=== PATIENT | female | born 1975 | race Caucasian/White ===

== ENCOUNTER → 2020-05-07 16:24 | Outpatient (CLI) | payer MEDICAID, SELFPAY ==
[2020-05-14 03:06] LABS: Age Gdln ACOG Testing 30-65 (.); HPV Genotype 16, Aptima Negative (Negative)
[2020-05-14 12:27] LABS: HPV APTIMA, High Risk Positive (Negative); HPV Genotype 18,45 Aptima Positive (Negative)
[2020-05-14 12:29] LABS: HPV Reflexed? YES, CHARGE PATIENT
== END ==
PROVIDERS: PCP Family Medicine; Visit Provider Family Medicine
DX: Z01.419 Encounter for gynecological examination (general) (routine) without abnormal findings (principal); Z12.4 Encounter for screening for malignant neoplasm of cervix
CPT/HCPCS: 87624; 88175; G0145

== ENCOUNTER → 2020-06-14 22:03 | Outpatient (CLI) | payer MEDICAID, SELFPAY | PROVIDERS: PCP Family Medicine; Referring Provider Family Medicine; Visit Provider Family Medicine | DX: G47.10 Hypersomnia, unspecified (principal); I10 Essential (primary) hypertension | CPT/HCPCS: 95810 ==

== ENCOUNTER → 2020-06-25 20:00 | Outpatient (CLI) | payer MEDICAID, SELFPAY | PROVIDERS: PCP Family Medicine; Visit Provider Family Medicine | DX: G47.33 Obstructive sleep apnea (adult) (pediatric) (principal) | CPT/HCPCS: 95811 ==

== ENCOUNTER → 2022-01-30 | Outpatient (CLI) | payer MEDICAID, SELFPAY ==
[2022-01-30 12:51] LABS: Vitamin B12 1191 pg/mL (211-911)
[2022-01-30 12:53] LABS: Anion Gap 7 (5-15); BUN 13 mg/dL (7-18); BUN/Creat Ratio 21.3 RATIO (10-20); Calcium,Total 9.7 mg/dL (8.5-10.1); Chloride 102 mmol/L (98-107); Creatinine, Serum 0.61 mg/dL (0.55-1.02); EST Glomerular Filtration Rate 112 mL/min (>60); Est Glom Filt Rate - Afr Amer 135 mL/min (>60); Glucose 88 mg/dL (74-106); Potassium 3.6 mmol/L (3.5-5.1); Sodium Level 139 mmol/L (136-145); Thyroid Stim Hormone (TSH) 2.14 uIU/mL (0.358-3.74)
== END | disposition home or self-care (01) ==
LOC: BFHLAB 10:10
PROVIDERS: PCP Family Medicine; Visit Provider Family Medicine
DX: I10 Essential (primary) hypertension (principal); E28.2 Polycystic ovarian syndrome; K21.9 Gastro-esophageal reflux disease without esophagitis; R73.01 Impaired fasting glucose; E53.8 Deficiency of other specified B group vitamins
CPT/HCPCS: 36415; 80048; 82607; 84443

== ENCOUNTER → 2022-12-15 | Outpatient (CLI) | payer MEDICAID, SELFPAY | END | disposition home or self-care (01) | LOC: SL 20:45 | PROVIDERS: PCP Family Medicine; Referring Provider Family Medicine; Visit Provider Family Medicine | DX: G47.33 Obstructive sleep apnea (adult) (pediatric) (principal) | CPT/HCPCS: 95811 ==

== ENCOUNTER 2023-06-14 02:38 | Observation (INO) | payer MEDICAID, SELFPAY ==
[2023-06-14] VITALS (12 sets, daily range): BP systolic 119–177; BP diastolic 64–96; PULSE 68–106; RESP 16–18; TEMP 36.2–39.3; O2SAT 92–100; BMI 59.3
--- OUTSIDE RECORDS SUMMARY | 2023-06-14 02:32 | XMS RPT_ITS | CCD ---
Author Name Unknown Address [address] [place] [address] Organization [facility] Care Team Providers Care Clinical Recruiter Name Role Phone NANI COON Admitting Unavailable COON, NANI Primary Care Unavailable COONNANI Attending Unavailable MIEDEL, BEVERLY Consulting Unavailable PROVIDER, UNKNOWN Consulting Unavailable PROVIDER, UNKNOWN Consulting Unavailable MIEDEL, BEVERLY Consulting Unavailable MIEDEL, BEVERLY Attending Unavailable MIEDEL, BEVERLY Admitting Unavailable MIEDEL, BEVERLY Primary Care Unavailable PROVIDER, UNKNOWN Consulting Unavailable PROVIDER, UNKNOWN Consulting Unavailable MIEDEL, BEVERLY Attending Unavailable MIEDEL, BEVERLY Admitting Unavailable MIEDEL, BEVERLY Primary Care Unavailable MIEDEL, BEVERLY Consulting Unavailable PROVIDER, UNKNOWN Consulting Unavailable PROVIDER, UNKNOWN Consulting Unavailable Results Test Name Value Interpretation Reference Range Facil ity Encounters Encounter Date Encounter Type Care Provider Facility Start: 05-26-2023 End: 05-26-2023 ambulatory BEVERLY Espinoza [facility] Start: 03-10-2023 End: 03-10-2023 ambulatory NANI COON [facility] Start: 12-09-2022 End: 12-09-2022 ambulatory BEVERLY YOUNGBLOOD [facility] Payers Date Payer Category Payer Unknown [id number] 1975 Unknown [id number] 1975 Unknown [id number] Unknown [id number] Summary Purpose Family History No Family History Records FoundNo Family History Records Found Advance Directives No Advanced Directives Records FoundNo Advanced Directives Records Found Additional Source Comments INFORMATION SOURCE (unrecogn ized section and content) DATE CREATED AUTHOR AUTHOR'S ANNEMARIE ATION 05/27/2023 [facility] FOR RECORDS PERTAINING TO PATIENTS WHO ARE OR HAVE BEEN ENROLLED IN A CHEMICAL DEPENDENCY/SUBSTANCEABUSE PROGRAM, SOME INFORMATION MAY BE OMITTED. This clinical summary was aggregated from multiple sources. Caution should be exercised in using it in the provision of clinical care. This summary normalizes information from multiple sources, and as a consequence, information in this document may materially change the coding, format and clinical context of patient data. In addition, data may be omitted in some cases. CLINICAL DECISIONS SHOULD BE BASED ON THE PRIMARY CLINICAL RECORDS. [employer] provides no warranty or guarantee of the accuracy or completeness of information in this document.
[2023-06-14] MEDS: 0.9% Saline Lock 10 ML Syringe IV (03:23)
[2023-06-14] MEDS: 0.9% Normal Saline (1000mL) 1,000 ML 75 ML IV ×2 (03:23→21:17)
--- NOTE | 2023-06-14 05:00 | EKG12_ITS ---
Test Reason : AM EKG Blood Pressure : / mmHG Vent. Rate : 097 BPM Atrial Rate : 097 BPM P-R Int : 152 ms QRS Dur : 098 ms QT Int : 362 ms P-R-T Axes : 017 062 038 degrees QTc Int : 459 ms Normal sinus rhythm Poor R wave progression Borderline No previous ECGs available Confirmed by James Ramirez ([id number]), newspaper or periodical editor ELIA MONTANA ([id number]) on 06/15/2023 9:49:20 AM Referred By: MYNOR Confirmed By:James Ramirez
[2023-06-14 06:25] LABS: Absolute Lymphocyte Count 0.85 X10^3/uL (0.83-4.51); Basophil# 0.05 X10^3/uL; Basophil% 0.3 % (0-1); Eosinophil# 0.03 X10^3/uL; Eosinophils% 0.2 % (0-5); Hematocrit 33.3 % (37-47); Hemoglobin 10.8 g/dL (12.0-15.0); Lymphocyte # 0.85 X10^3/ul (0.83-4.51); Lymphocyte % 5.7 % (19-41); Mean Corp Hgb Conc 32.4 g/dL (32-36); Mean Corpuscular Hgb 29.4 pg (27.0-32.0); Mean Corpuscular Volume 90.7 fL (81-99); Mean Platelet Vol. 9.7 fl (6.2-12.0); NRBC Flagged by Analyzer 0 % (0-5); Neutrophil # 12.95 X10^3/uL (2.7-7.7); Neutrophil % 86.9 % (47-70); Platelet Count 208 K/mm3 (150-450); RBC Distribution Width CV 13.5 % (11.6-14.6); RBC Distribution Width SD 45.3 fl (35.1-43.9); Red Blood Count 3.67 M/mm3 (4.2-5.4); White Blood Count 14.9 K/mm3 (4.4-11.0)
[2023-06-14 06:38] LABS: Anion Gap 6 (5-15); BUN 14 mg/dL (7-18); BUN/Creat Ratio 11.8 RATIO (10-20); Calcium,Total 8.5 mg/dL (8.5-10.1); Chloride 105 mmol/L (98-107); Creatinine, Serum 1.19 mg/dL (0.55-1.02); EST Glomerular Filtration Rate 52 mL/min (>60); Est Glom Filt Rate - Afr Amer 62 mL/min (>60); Estimated Creatinine Clearance 91.23 ml/min; Glucose 129 mg/dL (74-106); Potassium 2.9 mmol/L (3.5-5.1); Sodium Level 139 mmol/L (136-145)
--- NOTE | 2023-06-14 07:35 | RAD_ITS ---
HISTORY: kidney stone. TECHNIQUE: XR Abdomen 1 View. COMPARISON: CT 02/05/2013. FINDINGS: BOWEL GAS PATTERN: Mild gaseous distention of small bowel in the midabdomen. Scattered air and stool in nondilated colon. FREE AIR: Not assessed on supine view. CALCIFICATIONS: No abnormal calcifications observed. BONES: Mild degenerative change. RAD/Abdomen Single View IMPRESSION: Unremarkable examination. Electronically Signed: Elyse Cerna MD at 8:18 EST ,
--- NOTE | 2023-06-14 07:37 | HP.PCM_ITS ---
HPI - General General Date of Admission: 06/13/23 Date of Service: 06/13/23 Chief Complaint: Kidney stone with urinary tract infection HPI Narrative CÉSAR HENDERSON, is a 47 F who presents As a transfer from outside hospital she presented with a kidney stone and had an infection she is not septic no snow signs of septic shock but with the active infection outside hospital wanted to have her transferred to [facility] for urology care. She's accepted started on broad- spectrum antibiotics with Cipro plan the check a KUB today to see the location of the stone and will plan to take a surgery today for cystoscopy and stent placement. [facility] Medical History (Updated 06/14/23 @ 07:[address] Bryn Rasmussen MD) Asthma Back pain due to injury CPAP (continuous positive airway pressure) dependence Depression GERD (gastroesophageal reflux disease) H/O methicillin resistant Staphylococcus aureus infection HTN (hypertension) Kidney stones PCOS (polycystic ovarian syndrome) Restless legs Sleep apnea Home Medications vits,calcium no.78-iron fumarate-folic acid 29 mg-1 mg tablet 1 tablet PO DAILY 01/11/13 [History Last Taken 01/24/13 0800] fluoxetine 20 mg capsule 20 mg PO DAILY 07/24/20 [History Last Taken Unknown] glucosamine sulfate 500 mg tablet (Glucosamine) 500 mg PO DAILY 07/24/20 [History Last Taken Unknown] hydrochlorothiazide 25 mg tablet 25 mg PO DAILY 07/24/20 [History Last Taken Unknown] magnesium 250 mg tablet 250 mg PO DAILY 07/24/20 [History Last Taken Unknown] metformin 500 mg tablet,extended release 24 hr 500 mg PO DAILY PCOS 07/24/20 [History Last Taken Unknown] omega-3 fatty acids 1,000 mg capsule (Fish Oil Concentrate) 1,000 mg PO DAILY 07/24/20 [History Last Taken Unknown] omeprazole 20 mg capsule,delayed release 20 mg PO DAILY 07/24/20 [History Last Taken Unknown] cholecalciferol (vitamin D3) 125 mcg (5,000 unit) capsule (D3-5000) 250 mcg PO QHS 06/14/23 [History Last Taken Unknown] Allergy/AdvReac Type Severity Reaction Status Date / Time adhesive AdvReac Itching Verified 07/24/20 13:46 latex AdvReac Itching Verified 07/24/20 13:46 Family History Father Asthma CVA (cerebral vascular accident) Seizures Mother Hypertension Diabetes Asthma Skin cancer Surgical History H/O section History of cholecystectomy History of tonsillectomy Social History household members: children and other details: parents housing: house Smoking Status: Never smoker alcohol intake: never diet: other what type of physical activity do you participate in: walking do you feel safe at home: Yes Vital Signs Vital Signs Vital Signs: 06/14/23 03:39 Temperature 99.2 F H Temperature Source Oral Pulse Rate 68 Respiratory Rate 16 Blood Pressure 120/96 H Blood Pressure Mean 104 Blood Pressure Source Monitor Blood Pressure Position Semi-Fowlers Blood Pressure Location Left Forearm Pulse Ox 97 Oxygen Delivery Method Room Air Weight Weight: 161.706 kg Body Mass Index (BMI) 59.3 Physical Exam Const alert and oriented x3 General Appearance: cooperative HEENT normocephalic and head/scalp atraumatic Eyes PERRL and EOMs intact bilaterally Neck supple, no JVD and no carotid bruits Resp normal respiratory effort, normal air movement and clear to auscultation bila terally Cardio regular rate and no murmurs GI normal to inspection, nondistended, normoactive bowel sounds and soft to palpation Extremity normal capillary refill General Extremity: no tenderness to palpation of joints or extremities; Negative for edema Skin no rashes or lesions noted and no wounds General Skin Exam: no breakdown Neuro CN's II-XII intact bilaterally Psych affect normal Appearance: appropriate Results Lab / Micro Data 06/14/23 05:49 06/14/23 05:49 Labs: Laboratory Results - last 24 hr 06/14/23 05:49: WBC 14.9 H, RBC 3.67 L, Hgb 10.8 L, Hct 33.3 L, MCV 90.7, MCH 29.4, MCHC 32.4, RDW Std Deviation 45.3 H, RDW Coeff of Bran 13.5, Plt Count 208, MPV 9.7, Immature Gran % (Auto) 0.900, Neut % (Auto) 86.9 H, Lymph % (Auto) 5.7 L, Glynn % (Auto) 6.0, Eos % (Auto) 0.2, Baso % (Auto) 0.3, Absolute Neuts (auto) 13.0 H, Absolute Lymphs (auto) 0.85, Nucleated RBC % 0, Sodium 139, Potassium 2.9 L, Chloride 105, Carbon Dioxide 28.0, Anion Gap 6, BUN 14, Creatinine 1.19 H , Estim Creat Clear Calc 91.23, Est GFR (MDRD) Af Amer 62, Est GFR (MDRD) Non-Af 52 L, BUN/Creatinine Ratio 11.8, Glucose 129 H, Calcium 8.5 Assessment & Plan Assessment/Plan (1) UTI (urinary tract infection): PLAN: Continue with broad-spectrum antibiotics with Cipro (2) Kidney stones: PLAN: Plan to get a KUB today the check location the stone, and PO, plan for surgery later today for cystoscopy stent placement.
--- NOTE | 2023-06-14 07:42 | DCINST_ITS ---
Discharge Instructions Diet Discharge Diet: No restrictions Activity Discharge Activity: Return to Normal Activity and May Not Drive (while taking narcotic pain medications.) Dressing / Incision Call your doctor if you observe: Fever of 101 or Higher Follow Up Care Please Follow Up With: Bryn Rasmussen MD When: Call [phone] for an appointment Test Results: Test results from this visit will be discussed in further detail at your follow- up appointment, if applicable. Discharge Plan Admission Admit Date/Time: 06/14/23 02:38 Primary Reason for Your Visit: kidney stone Attending Provider: Bryn Rasmussen Primary Care Provider: Ruth Gipson Discharge Orders/Prescriptions Prescriptions: New ciprofloxacin HCl [Cipro] 500 mg tablet 500 mg PO BID Qty: 14 0RF ibuprofen 600 mg tablet 600 mg PO Q6H PRN (Reason: pain) Qty: 20 0RF tamsulosin [Flomax] 0.4 mg capsule 0.4 mg PO DAILY Qty: 14 0RF phenazopyridine [Pyridium] 100 mg tablet 100 mg PO TID Qty: 14 0RF Continued omeprazole 20 mg capsule,delayed release(DR/EC) 20 mg PO DAILY metformin 500 mg tablet extended release 24 hr 500 mg PO DAILY fluoxetine 20 mg capsule 20 mg PO DAILY Patient Comments: TAKE 1 CAPSULE BY MOUTH ONCE DAILY hydrochlorothiazide 25 mg tablet 25 mg PO DAILY magnesium 250 mg tablet 250 mg PO DAILY glucosamine sulfate [Glucosamine] 500 mg tablet 500 mg PO DAILY Rx Instructions: administer with a meal omega-3 fatty acids [Fish Oil Concentrate] 1,000 mg capsule 1,000 mg PO DAILY vit,[id number] 1 TABLET tablet 1 tablet PO DAILY cholecalciferol (vitamin D3) [D3-5000] 125 mcg (5,000 unit) capsule 250 mcg PO QHS Referrals / Follow Up: Ruth Gipson MD [Primary Care Provider] - Bryn Rasmussen MD [Med Staff - Active Staff] - Disposition Disposition (needs filled in before D/C Order can be placed): Home, Self Care
[2023-06-14] MEDS: 0.9% Normal Saline (1000mL) 1,000 ML 15 ML IV (08:31)
[2023-06-14] MEDS: Ciprofloxacin 400 MG/200 ML BAG 200 MG IV ×2 (08:31→21:16)
[2023-06-14] MEDS: Potassium Chloride 10mEq/100mL 10 MEQ/100 ML IV.SOLN. 100 MEQ IV BOLUS (08:32)
--- NOTE | 2023-06-14 09:22 | OP.PCM_ITS ---
Report of Operation Date of Procedure: 06/14/23 Pre-Operative Diagnosis: Infected right stone right UPJ Post-Operative Diagnosis: The same Surgery/Procedure Performed:: Cystoscopy right retrograde pyelogram and right stent placement Description of Surgical Findings:: Patient was taken back to the operating room after induction of general anesthesia, the patient was placed in dorsolithotomy position. The urethra and genitals were prepped and draped in usual sterile fashion. Using a 21 Malaysian rigid cystourethroscope the entire length of the urethra was normal then went into the bladder. Identified the trigone the left and right ureteral orifice. I then cannulated the right ureteral orifice and advanced a wire up into the kidney. I then backloaded a 5 Malaysian open ended catheter over the wire and injected contrast to delineate the anatomy. After the retrograde was performed I then used fluoroscopic images and guidance to advanced a wire up into the kidney and over the 0.038 glidewire I advanced a 6 Malaysian by 26 cm double p igtail stent. On retrograde he could see a radiolucent stone in the right UPJ, I then pulled the 0.038 Glidewire off and the stent coiled in the kidney bladder good position. The bladder was then drained. We confirmed the position of the stent by fluoroscopy. Patient anesthetic was reversed and was taken back to the PACU in good condition. Surgeon: Bryn Rasmussen Type of Anesthesia: IV Sedation and MAC and Topical Anesth Drains: 6fr 26 cm stent right Admit VTE Documentation VTE Present on Admission: No VTE Mechan Device Prophylaxis: SCD's VTE Pharm Prophylaxis ordered?: No
[2023-06-14] MEDS: Magnesium Chloride 64 MG Delay Rel.Tablet PO (11:27)
[2023-06-14] MEDS: FLUoxetine 20 MG Capsule PO (11:28)
[2023-06-14] MEDS: Pantoprazole Sodium 20 MG Tablet PO (11:28)
[2023-06-14] MEDS: hydroCHLOROthiazide 25 MG Tablet PO (11:28)
--- NOTE | 2023-06-14 12:05 | NURSING ---
shirley pulled from omnicell given to primary RN whose in isolation to administer
[2023-06-14] MEDS: Ibuprofen 600 MG Tablet PO ×2 (12:07→21:14)
[2023-06-14] MEDS: Acetaminophen 325 MG Tablet 650 MG PO (23:00)
[2023-06-15 05:02] VITALS: BP 133/67; PULSE 84; RESP 18; TEMP 37.1; O2SAT 96
[2023-06-15 06:58] LABS: Hematocrit 32.1 % (37-47); Hemoglobin 10.3 g/dL (12.0-15.0); Mean Corp Hgb Conc 32.1 g/dL (32-36); Mean Corpuscular Hgb 29.2 pg (27.0-32.0); Mean Corpuscular Volume 90.9 fL (81-99); Platelet Count 199 K/mm3 (150-450); RBC Distribution Width CV 13.9 % (11.6-14.6); Red Blood Count 3.53 M/mm3 (4.2-5.4); White Blood Count 10.6 K/mm3 (4.4-11.0)
--- NOTE | 2023-06-15 07:29 | PCM.PN.GU ---
Subjective Subjective s/p stent doing well add no for tomorrow to laser stone and remove stent Objective Data Objective Data Vital Signs: Vital Signs Temp Pulse Resp BP Pulse Ox O2 Del Method 98.7 F 84 18 133/67 H 96 Room Air 06/15/23 05:02 06/15/23 05:02 06/15/23 05:02 06/15/23 05:02 06/15/23 05:02 06/15/23 05:02 Oxygen Delivery Method Room Air Weight: 161.706 kg Body Mass Index (BMI) 59.3 Intake & Output: Intake and Output for Last 24 Hours 06/13/23 06/14/23 06/15/23 23:59 23:59 23:59 Intake Total 4267.5 / 4267.5 Output Total 900 / 900 Balance 3367.5 / 3367.5 Lab / Micro Data 06/15/23 06:14 06/14/23 05:49 Labs: Laboratory Results - last 24 hr 06/15/23 06:14: WBC 10.6, RBC 3.53 L, Hgb 10.3 L, Hct 32.1 L, MCV 90.9, MCH 29.2, MCHC 32.1, RDW Std Deviation 47.0 H, RDW Coeff of Bran 13.9, Plt Count 199, MPV 10.0 Radiography Diagnostic Testing: Radiology Impression KUB X-Ray 06/14/23 07:35 IMPRESSION: Unremarkable examination. Electronically Signed: Elyse Cerna MD at 8:18 EST ,
[2023-06-15 08:01] LABS: Anion Gap 6 (5-15); BUN 14 mg/dL (7-18); BUN/Creat Ratio 13.1 RATIO (10-20); Calcium,Total 8.4 mg/dL (8.5-10.1); Chloride 107 mmol/L (98-107); Creatinine, Serum 1.07 mg/dL (0.55-1.02); EST Glomerular Filtration Rate 58 mL/min (>60); Est Glom Filt Rate - Afr Amer 71 mL/min (>60); Estimated Creatinine Clearance 101.46 ml/min; Glucose 130 mg/dL (74-106); Potassium 3.1 mmol/L (3.5-5.1); Sodium Level 138 mmol/L (136-145)
[2023-06-15 09:08] VITALS: BP 151/91; PULSE 79; RESP 18; TEMP 36.6; O2SAT 99
[2023-06-15] MEDS: Ciprofloxacin 400 MG/200 ML BAG 200 MG IV ×2 (10:24→23:52)
[2023-06-15] MEDS: Magnesium Chloride 64 MG Delay Rel.Tablet PO (10:34)
[2023-06-15] MEDS: Pantoprazole Sodium 20 MG Tablet PO (10:35)
[2023-06-15] MEDS: FLUoxetine 20 MG Capsule PO (10:35)
--- NOTE | 2023-06-15 12:40 | NURSING ---
pt iv infiltrated right upper forearm, iv stopped, DSD applied pt difficult stick-2 attempts unable to start awaiting 2nd nurse to start iv
[2023-06-15] MEDS: Potassium Chloride 10mEq/100mL 10 MEQ/100 ML IV.SOLN. 100 MEQ IV BOLUS ×8 (13:13→22:45)
[2023-06-15] MEDS: Acetaminophen 325 MG Tablet 650 MG PO ×2 (13:16→20:48)
[2023-06-15 14:00] VITALS: BP 155/86; PULSE 93; RESP 18; TEMP 36.6; O2SAT 96
[2023-06-15 20:42] VITALS: BP 182/89; PULSE 95; RESP 20; TEMP 37.6; O2SAT 97
[2023-06-15 23:42] VITALS: BP 167/94; PULSE 88; RESP 18; TEMP 37.3; O2SAT 97
[2023-06-16] VITALS (11 sets, daily range): BP systolic 146–164; BP diastolic 69–102; PULSE 79–88; RESP 16–18; TEMP 36.1–37.2; O2SAT 90–98
[2023-06-16] MEDS: 0.9% Saline Lock 10 ML Syringe IV (05:32)
[2023-06-16] MEDS: 0.9% Normal Saline (1000mL) 1,000 ML 75 ML IV (05:32)
[2023-06-16 07:54] LABS: Anion Gap 6 (5-15); BUN 12 mg/dL (7-18); BUN/Creat Ratio 11.8 RATIO (10-20); Calcium,Total 8.4 mg/dL (8.5-10.1); Chloride 104 mmol/L (98-107); Creatinine, Serum 1.02 mg/dL (0.55-1.02); EST Glomerular Filtration Rate 62 mL/min (>60); Est Glom Filt Rate - Afr Amer 75 mL/min (>60); Estimated Creatinine Clearance 106.44 ml/min; Glucose 112 mg/dL (74-106); Potassium 3.3 mmol/L (3.5-5.1); Sodium Level 137 mmol/L (136-145)
[2023-06-16] MEDS: Potassium Chloride 10mEq/100mL 10 MEQ/100 ML IV.SOLN. 75 MEQ IV BOLUS ×4 (09:54→14:00)
[2023-06-16] MEDS: Pantoprazole Sodium 20 MG Tablet PO (09:54)
[2023-06-16] MEDS: Ciprofloxacin 400 MG/200 ML BAG 200 MG IV (09:54)
[2023-06-16] MEDS: hydroCHLOROthiazide 25 MG Tablet PO (11:13)
--- NOTE | 2023-06-16 13:11 | NURSING ---
Patient being transported off unit to OR at this time. TC to Hanna in [facility] regarding k-riders that are currently running and that her bp has been elevated. Dr. Rasmussen aware.
--- NOTE | 2023-06-16 14:28 | PCM.OPRPT ---
Report of Operation Date of Procedure: 06/16/23 Pre-Operative Diagnosis: Right renal calculi Post-Operative Diagnosis: The same Surgery/Procedure Performed:: Cystoscopy right ureteroscopy laser lithotripsy of stone and removal of stent Description of Surgical Findings:: This is a patient who presents to the hospital for treatment for an obstructing ureter calculi. I discussed with the patient how the surgery would be performed and we reviewed the risks and benefits of the surgery. The risk and benefits include the risk of failure to remove the stone completely and that the patient may need multiple procedures. We discussed the risk of an infection, the risk of bleeding. We discussed the very rare risk of serious complicated injury to the ureter. The patient understands that if the stone is not able to be removed safely that we may abort the procedure and place a stent. After full discussion and all questions address with the patient the consent form was signed the side was marked appropriately and the patient was taken back to the operating room for the procedure. The patient was taken back to the operating room. After induction of anesthesia by the anesthesiology team the patient was placed in dorsolithotomy position. The genitals were prepped and draped in usual sterile fashion. I went into the bladder with a 21 Portuguese rigid cystourethroscope through the urethra. Upon entering the bladder I inspected the trigone the left and right ureteral orifice and the bladder itself. I then cannulated the right ureteral orifice and advanced a 0.038 Glidewire up into the kidney. Then over the Glidewire I advanced a 5 Fr Ureteral catheter and performed a retrograde pyelogram with about 10cc of contrast, to delineate the anatomy and identify the stone location. Then a ureteral balloon dilator was advanced over the wire and the distal ureter was balloon dilated with a 12 Fr x 5cm balloon dilator. After 3 minutes of dilating the ureter the balloon was backloaded off the 0.038 glidewire over the 0.038 guidewire I went in with the flexible 7.5fr ureteroscope. I was able to go inside with the 7.5Fr utereroscope and I pulled out the guidewire and then through the ureteroscope I engage the stone with laser lithotripsy using a 270miron laser fiber with energy setting of 6 Hertz and 0.6 J until the stone was lasered into tiny little pieces that should pass on their own. I then drained the patient's bladder and the cystoscope was removed and the patient was taken back to the recovery room in good position. The patient was given discharge instructions to call the office for instructions on when to come to the office for a post op check. Surgeon: Bryn Rasmussen Type of Anesthesia: General Admit VTE Documentation VTE Present on Admission: No VTE Mechan Device Prophylaxis: SCD's VTE Pharm Prophylaxis ordered?: No
--- NOTE | 2023-06-16 14:30 | PCM.DC.SUM ---
Providers Date of Admission: 06/14/23 Primary Care Physician: Dr. Ruth Gipson MD Reason For Visit: INFECTED KIDNEY STONE Diagnosis Discharge Diagnosis (1) UTI (urinary tract infection): Status: Acute Code(s): N39.0 - Urinary tract infection, site not specified Plan: Continue with broad-spectrum antibiotics with Cipro (2) Kidney stones: Status: Acute Code(s): N20.0 - Calculus of kidney Plan: Plan to get a KUB today the check location the stone, and PO, plan for surgery later today for cystoscopy stent placement. Medications at Discharge Home Medications vits,calcium no.78-iron fumarate-folic acid 29 mg-1 mg tablet 1 tablet PO DAILY 01/11/13 fluoxetine 20 mg capsule 20 mg PO DAILY 07/24/20 glucosamine sulfate 500 mg tablet (Glucosamine) 500 mg PO DAILY 07/24/20 hydrochlorothiazide 25 mg tablet 25 mg PO DAILY 07/24/20 magnesium 250 mg tablet 250 mg PO DAILY 07/24/20 metformin 500 mg tablet,extended release 24 hr 500 mg PO DAILY PCOS 07/24/20 omega-3 fatty acids 1,000 mg capsule (Fish Oil Concentrate) 1,000 mg PO DAILY 07/24/20 omeprazole 20 mg capsule,delayed release 20 mg PO DAILY 07/24/20 cholecalciferol (vitamin D3) 125 mcg (5,000 unit) capsule (D3-5000) 250 mcg PO QHS 06/14/23 ciprofloxacin HCl 500 mg tablet (Cipro) 500 mg PO BID #14 tabs 06/14/23 ibuprofen 600 mg tablet 600 mg PO Q6H PRN pain #20 tabs 06/14/23 phenazopyridine 100 mg tablet (Pyridium) 100 mg PO TID #14 tabs 06/14/23 tamsulosin 0.4 mg capsule (Flomax) 0.4 mg PO DAILY #14 caps 06/14/23 Hospital Course Summary of Care Provided Hospital Course: Patient was admitted for obstructing kidney stone underwent stent placement was then treated with broad-spectrum antibiotics and then she underwent cystoscopy ureteroscopy laser lithotripsy of stones and removal of stent she will go home today after the laser of the stones. Physical Exam Const alert and oriented x3 General Appearance: cooperative HEENT normocephalic, head/scalp atraumatic, EAC's normal and TM's normal bilaterally Eyes PERRL and EOMs intact bilaterally Pupil: sluggish Neck no lymphadenopathy, supple and no JVD General: trachea midline Lymph Lymphatic: no lymphadenopathy noted, lymphedema and lymphadenopathy Resp normal respiratory effort, normal air movement and clear to auscultation bilaterally Cardio regular rate, regular rhythm and peripheral pulses 2+ throughout GI soft to palpation, non-tender and non-distended Extremity normal capillary refill and no clubbing, cyanosis or edema General Extremity: no tenderness to palpation of joints or extremities Skin no rashes or lesions noted General Skin Exam: turgor normal Lesions: no lesions Rashes: no rashes Neuro CN's II-XII intact bilaterally Speech: speech normal Motor Exam: strength 5/5 throughout; Negative for general weakness Psych thought process normal, cooperative and affect normal Appearance: appropriate Weight / BMI Weight Weight: 161.706 kg Body Mass Index (BMI) 59.3 ABG / Lab / Microbiology Data 06/15/23 06:14 06/16/23 06:23 Laboratory: Laboratory Results - last 24 hr 06/16/23 06:23: Sodium 137, Potassium 3.3 L, Chloride 104, Carbon Dioxide 27.0, Anion Gap 6, BUN 12, Creatinine 1.02, Estim Creat Clear Calc 106.44, Est GFR (MDRD) Af Amer 75, Est GFR (MDRD) Non-Af 62, BUN/Creatinine Ratio 11.8, Glucose 112 H, Calcium 8.4 L D/C Instructions Discharge Diet: No restrictions Call your doctor if you observe: Fever of 101 or Higher Please Follow Up With: Bryn Rasmussen MD When: Call [phone] for an appointment Meaningful Use Info Meaningful Use Diagnoses (Choose all that apply): None applicable Discharge Plan Admission Admit Date/Time: 06/14/23 02:38 Primary Reason for Your Visit: kidney stone Attending Provider: Bryn Rasmussen Primary Care Provider: Ruth Gipson Discharge Orders/Prescriptions Prescriptions: New ciprofloxacin HCl [Cipro] 500 mg tablet 500 mg PO BID Qty: 14 0RF ibuprofen 600 mg tablet 600 mg PO Q6H PRN (Reason: pain) Qty: 20 0RF tamsulosin [Flomax] 0.4 mg capsule 0.4 mg PO DAILY Qty: 14 0RF phenazopyridine [Pyridium] 100 mg tablet 100 mg PO TID Qty: 14 0RF Continued omeprazole 20 mg capsule,delayed release(DR/EC) 20 mg PO DAILY metformin 500 mg tablet extended release 24 hr 500 mg PO DAILY fluoxetine 20 mg capsule 20 mg PO DAILY Patient Comments: TAKE 1 CAPSULE BY MOUTH ONCE DAILY hydrochlorothiazide 25 mg tablet 25 mg PO DAILY magnesium 250 mg tablet 250 mg PO DAILY glucosamine sulfate [Glucosamine] 500 mg tablet 500 mg PO DAILY Rx Instructions: administer with a meal omega-3 fatty acids [Fish Oil Concentrate] 1,000 mg capsule 1,000 mg PO DAILY vit,[id number] 1 TABLET tablet 1 tablet PO DAILY cholecalciferol (vitamin D3) [D3-5000] 125 mcg (5,000 unit) capsule 250 mcg PO QHS Referrals / Follow Up: Ruth Gipson MD [Primary Care Provider] - Bryn Rasmussen MD [Med Staff - Active Staff] - Disposition Disposition (needs filled in before D/C Order can be placed): Home, Self Care
== END 2023-06-16 17:30 | disposition home or self-care (01) ==
PROVIDERS: Admitting Provider Urology; PCP Family Medicine; Visit Provider Urology
PROC: (CPT 52332; principal; 2023-06-14 15:50)
PROC: 0TJ98ZZ Inspection of Ureter, Via Natural or Artificial Opening Endoscopic (ICD-10-PCS; CPT 52352; principal; 2023-06-16 15:25)
DX: N39.0 Urinary tract infection, site not specified (principal); I10 Essential (primary) hypertension; N20.2 Calculus of kidney with calculus of ureter; J45.909 Unspecified asthma, uncomplicated; K21.9 Gastro-esophageal reflux disease without esophagitis; Z79.899 Other long term (current) drug therapy; Z79.84 Long term (current) use of oral hypoglycemic drugs; E28.2 Polycystic ovarian syndrome; G47.30 Sleep apnea, unspecified; Z86.14 Personal history of Methicillin resistant Staphylococcus aureus infection
CPT/HCPCS: 52332; 00910; 52353; 00918; C1726; C1769 ×2; C2617; 36415; 74018; 76000; 80048; 85025; 85027; 93005; 96361; 96365; 96366; 96367; 99221; J7030; A4216; G0378; J0744; J2405

== ENCOUNTER 2024-03-27 09:11 | Day surgery (SDC) | payer MEDICAID, SELFPAY ==
--- NOTE | 2024-03-22 13:56 | PAT.ANE_ITS ---
PAT status Pat Assessment PAT Assessment: PAT Anesthesia Results to Eval 03/22/24 09:48 Pre-Assessment Diagnosis/Proposed Procedure Planned Operative Procedure(s): LEFT HIP INTRA-ARTICULAR STEROID INJ UNDER FLUOROSCOPY Anesthesia History Anesthesia History - final inspector shuttle: Anesthesia History - final inspector shuttle Hx Hospitalization No 03/22/24 09:37 Any Problems With Anesthesia No 03/22/24 09:37 Cholinesterase deficiency No 03/22/24 09:37 You/Your Family Experience No 03/22/24 09:37 fever (hyperthermia) with Relationship Recent Exposure to Contagious Yes 06/15/23 20:40 Disease Does patient have nerve No 03/22/24 09:37 stimulator Patient instructed to have device shut off --Does patient have Pacemaker or ICD? When Was Last Pacemaker Check QUESTION #4 FULL TEXT: You/Your Family Experience fever (hyperthermia) with Anesthesia Last Oral Intake Last Oral intake: Last Oral Intake NPO since Meds taken in AM with sips of water? Meds patient instructed to take am of surgery PONV PONV - final inspector shuttle: PONV - final inspector shuttle Female Yes 03/22/24 09:37 HX of Motion Sickness No 03/22/24 09:37 HX of N/V After Surgery No 03/22/24 09:37 Non-Smoker Yes 03/22/24 09:37 Duration of Surgery greater No 03/22/24 09:37 than 60 minutes Number of Risk Factors 2 03/22/24 09:37 PONV Score Moderate Risk 03/22/24 09:37 Height & Weight Height & Weight: Anesthesia: Height & Weight Height 5 ft 5 in 10/13/23 09:32 Respiratory Assessment Respiratory Assessment - final inspector shuttle: Respiratory Tract Infection Hx - final inspector shuttle Hx Respiratory Tract Infection No 03/22/24 09:37 STOP Sleep Apnea STOP Sleep Apnea - final inspector shuttle: STOP Sleep Apnea - final inspector shuttle Hx Hypertension Yes: CONTROLLED ON MED 03/22/24 09:37 Hx Sleep Apnea Yes 03/22/24 09:37 CPAP Yes 03/22/24 09:37 BIPAP No 03/22/24 09:37 Do you snore loudly (louder than talking or can be heard Do you often feel tired/ fatigued/ sleepy during daytime? Has anyone observed you stop breathing during sleep? STOP Results Positive 03/22/24 09:37 QUESTION #5 FULL TEXT : Do you snore loudly (louder than talking or can be heard through closed doors)? Tobacco Use History Tobacco Use History - final inspector shuttle: Tobacco Use History - final inspector shuttle Tobacco Use Smoking Status Never smoker 03/22/24 09:37 Hx Tobacco Use No 03/22/24 09:37 Years Smoking Packs Smoked per Day Smoking Cessation Date was within the last 15 years Hx Smoking Cessation Date Hx Smoking Cessation Counseling Hematologic Medial History Hematologic Hx - final inspector shuttle: Hematologic Medical Hx - client services associate Hx of Blood Transfusion No 03/22/24 09:37 Hx of Transfusion in last 3 No 03/22/24 09:37 Months Date of Last Transfusion (if within last 3 months) Ever experience any problems No 03/22/24 09:37 with transfusion(s)? Specify any problems Hx of Preganancy in last 3 No 03/22/24 09:37 Months Nurse Filling Out Transfusion VCHRISTIN 03/22/24 09:37 & Questions: Date: 03/22/24 03/22/24 09:37 Time: 09:39 03/22/24 09:37 Patient unable to answer at this time (ie. confused, unrespo /Reproduction History /Reproductive History - final inspector shuttle: /Reproductive Hx- final inspector shuttle Hx Now No 03/22/24 09:37 Gestational Age (in weeks): EDC: Hx Hx Para Hx Section SAB No 03/22/24 09:37 [facility] Medical History (Updated 03/22/24 @ 09:37 by Carly Ferreira) Back pain due to injury Restless legs Depression Kidney stones GERD (gastroesophageal reflux disease) CPAP (continuous positive airway pressure) dependence Asthma Sleep apnea HTN (hypertension) PCOS (polycystic ovarian syndrome) H/O methicillin resistant Staphylococcus aureus infection Home Medications ?Medication ?Instructions ?Recorded ?Last Taken ?Type fluoxetine 20 mg capsule 20 mg PO DAILY 07/24/20 Unknown History glucosamine sulfate 500 mg tablet 1,000 mg PO DAILY 07/24/20 Unknown History (Glucosamine) hydrochlorothiazide 25 mg tablet 25 mg PO DAILY 07/24/20 Unknown History magnesium 250 mg tablet 250 mg PO DAILY 07/24/20 Unknown History metformin 500 mg tablet,extended 500 mg PO DAILY PCOS 07/24/20 Unknown History release 24 hr omega-3 fatty acids 1,000 mg 1,000 mg PO DAILY 07/24/20 Unknown History capsule (Fish Oil Concentrate) omeprazole 20 mg capsule,delayed 20 mg PO DAILY 07/24/20 Unknown History release cholecalciferol (vitamin D3) 125 250 mcg PO QHS 06/14/23 Unknown History mcg (5,000 unit) capsule (D3-5000) ibuprofen 600 mg tablet 600 mg PO Q6H PRN pain #20 tabs 06/14/23 Unknown Rx albuterol sulfate 90 mcg/actuation 2 puff inhalation Q6H PRN 03/22/24 Unknown History aerosol inhaler shortness of breath or wheezing Allergy/AdvReac Type Severity Reaction Status Date / Time adhesive AdvReac Itching Verified 03/22/24 09:30 latex AdvReac Itching Verified 03/22/24 09:30 Family History Father Asthma CVA (cerebral vascular accident) Seizures Mother Hypertension Diabetes Asthma Skin cancer Surgical History (Updated 03/22/24 @ 09:37 by Carly Ferreira) History of cystoscopy History of cholecystectomy History of tonsillectomy H/O section Social History household members: children and other details: parents housing: house Smoking Status: Never smoker alcohol intake: never diet: other what type of physical activity do you participate in: walking do you feel safe at home: Yes Audit: Pertinent Findings Pertinent Findings EKG Perinent findings: 07/03 nsr, poor r wave progression Recommendation Anesthesia Recommendation Anesthesia recommendation: OPTIMIZED for anesthesia
[2024-03-27] VITALS (8 sets, daily range): BP systolic 157–175; BP diastolic 81–93; PULSE 65–78; RESP 16; TEMP 36.3–36.6; O2SAT 95–100; BMI 61.2
[2024-03-27 10:20] LABS: Internal QC Validated? YES +Cl - CLEAR BKGD; Pregnancy, Urine Negative Negative
--- NOTE | 2024-03-27 11:07 | PRE.ANES_ITS ---
ASA Classification* ASA Classification ASA Classification: 2 Assessment & Plan Anesthesia* Anesthesia Assessment Anesthesia Assessment: Discussed sedation and/or anesthesia options, risks, benefits, and alternatives with patient/parents/legal guardian/POA. Questions invited. The patient/parents/legal guardian/POA seems to understand and agrees to proceed with anesthesia plan. Reviewed the physical assessment, medical history, allergy history and patient home medications list prior to surgery/procedure/anesthetic and documented any changes. Performed airway and anesthesia risk assessments. Anesthesia Type Anesthesia Type: MAC Anesthesia Focused Assessment* Temperature: 97.8 F Pulse Rate: 78 Blood Pressure: 157/93 Respiratory Rate: 16 Pulse Ox: 100 Airway Assessment Mouth opens: >3 cm Mallampati Score: II Focused Labs Anesthesia Preop lab: CBC WBC 10.6 K/mm3 (4.4-11.0) 06/15/23 06:14 RBC 3.53 M/mm3 (4.2-5.4) L 06/15/23 06:14 Hgb 10.3 g/dL (12.0-15.0) L 06/15/23 06:14 Hct 32.1 % (37-47) L 06/15/23 06:14 Plt Count 199 K/mm3 (150-450) 06/15/23 06:14 CHEMISTRY Potassium 3.3 mmol/L (3.5-5.1) L 06/16/23 06:23 Sodium 137 mmol/L (136-145) 06/16/23 06:23 BUN 12 mg/dL (7-18) 06/16/23 06:23 Creatinine 1.02 mg/dL (0.55-1.02) 06/16/23 06:23 Glucose 112 mg/dL (74-106) H 06/16/23 06:23 TSH 2.14 uIU/mL (0.358-3.74) 01/30/22 10:11 COAG PT 12.3 SECONDS (11.9-14.4) 01/25/13 08:35 Urine Test Negative Negative 03/27/24 10:09 Pre-Assessment Diagnosis/Proposed Procedure Planned Operative Procedure(s): LEFT HIP INTRA-ARTICULAR STEROID INJ UNDER FLUOROSCOPY Anesthesia History Anesthesia History - operational intelligence officer: Anesthesia History - operational intelligence officer Hx Hospitalization No 03/22/24 09:37 Any Problems With Anesthesia No 03/22/24 09:37 Cholinesterase deficiency No 03/22/24 09:37 You/Your Family Experience No 03/22/24 09:37 fever (hyperthermia) with Relationship Recent Exposure to Contagious No 03/27/24 10:28 Disease Does patient have nerve No 03/22/24 09:37 stimulator Patient instructed to have device shut off --Does patient have Pacemaker No 03/27/24 10:28 or ICD? When Was Last Pacemaker Check QUESTION #4 FULL TEXT: You/Your Family Experience fever (hyperthermia) with Anesthesia Last Oral Intake Last Oral intake: Last Oral Intake NPO since 00:00 03/27/24 10:28 Meds taken in AM with sips of water? Meds patient instructed to take am of surgery PONV PONV - operational intelligence officer: PONV - operational intelligence officer Female Yes 03/22/24 09:37 HX of Motion Sickness No 03/22/24 09:37 HX of N/V After Surgery No 03/22/24 09:37 Non-Smoker Yes 03/22/24 09:37 Duration of Surgery greater No 03/22/24 09:37 than 60 minutes Number of Risk Factors 2 03/22/24 09:37 PONV Score Moderate Risk 03/22/24 09:37 Height & Weight Height & Weight: Anesthesia: Height & Weight Height 5 ft 5 in 03/27/24 10:28 Weight: 166.922 kg 03/27/24 10:28 Body Mass Index (BMI) 61.2 03/27/24 10:28 Respiratory Assessment Respiratory Assessment - operational intelligence officer: Respiratory Tract Infection Hx - operational intelligence officer Hx Respiratory Tract Infection No 03/22/24 09:37 STOP Sleep Apnea STOP Sleep Apnea - operational intelligence officer: STOP Sleep Apnea - operational intelligence officer Hx Hypertension Yes: CONTROLLED ON MED 03/22/24 09:37 Hx Sleep Apnea Yes 03/22/24 09:37 CPAP Yes 03/22/24 09:37 BIPAP No 03/22/24 09:37 Do you snore loudly (louder than talking or can be heard Do you often feel tired/ fatigued/ sleepy during daytime? Has anyone observed you stop breathing during sleep? STOP Results Positive 03/22/24 09:37 QUESTION #5 FULL TEXT : Do you snore loudly (louder than talking or can be heard through closed doors)? Tobacco Use History Tobacco Use History - operational intelligence officer: Tobacco Use History - operational intelligence officer Tobacco Use Smoking Status Never smoker 03/22/24 09:37 Hx Tobacco Use No 03/22/24 09:37 Years Smoking Packs Smoked per Day Smoking Cessation Date was within the last 15 years Hx Smoking Cessation Date Hx Smoking Cessation Counseling Hematologic Medial History Hematologic Hx - operational intelligence officer: Hematologic Medical Hx - retread operator Hx of Blood Transfusion No 03/22/24 09:37 Hx of Transfusion in last 3 No 03/22/24 09:37 Months Date of Last Transfusion (if within last 3 months) Ever experience any problems No 03/22/24 09:37 with transfusion(s)? Specify any problems Hx of Preganancy in last 3 No 03/22/24 09:37 Months Nurse Filling Out Transfusion VCHRISTIN 03/22/24 09:37 & Questions: Date: 03/22/24 03/22/24 09:37 Time: 09:39 03/22/24 09:37 Patient unable to answer at this time (ie. confused, unrespo /Reproduction History /Reproductive History - operational intelligence officer: /Reproductive Hx- operational intelligence officer Hx Now No 03/22/24 09:37 Gestational Age (in weeks): EDC: Hx Hx Para Hx Section SAB No 03/22/24 09:37 [facility] Medical History Back pain due to injury Restless legs Depression Kidney stones GERD (gastroesophageal reflux disease) CPAP (continuous positive airway pressure) dependence Asthma Sleep apnea HTN (hypertension) PCOS (polycystic ovarian syndrome) H/O methicillin resistant Staphylococcus aureus infection Home Medications ?Medication ?Instructions ?Recorded ?Last Taken ?Type fluoxetine 20 mg capsule 20 mg PO DAILY 07/24/20 Unknown History glucosamine sulfate 500 mg tablet 1,000 mg PO DAILY 07/24/20 Unknown History (Glucosamine) hydrochlorothiazide 25 mg tablet 25 mg PO DAILY 07/24/20 Unknown History magnesium 250 mg tablet 250 mg PO DAILY 07/24/20 Unknown History metformin 500 mg tablet,extended 500 mg PO DAILY PCOS 07/24/20 Unknown History release 24 hr omega-3 fatty acids 1,000 mg 1,000 mg PO DAILY 07/24/20 Unknown History capsule (Fish Oil Concentrate) omeprazole 20 mg capsule,delayed 20 mg PO DAILY 07/24/20 03/27/24 History release cholecalciferol (vitamin D3) 125 250 mcg PO QHS 06/14/23 Unknown History mcg (5,000 unit) capsule (D3-5000) ibuprofen 600 mg tablet 600 mg PO Q6H PRN pain #20 tabs 06/14/23 Unknown Rx albuterol sulfate 90 mcg/actuation 2 puff inhalation Q6H PRN 03/22/24 Unknown History aerosol inhaler shortness of breath or wheezing Allergy/AdvReac Type Severity Reaction Status Date / Time adhesive AdvReac Itching Verified 03/27/24 10:26 latex AdvReac Itching Verified 03/27/24 10:26 Family History Father Asthma CVA (cerebral vascular accident) Seizures Mother Hypertension Diabetes Asthma Skin cancer Surgical History History of cystoscopy History of cholecystectomy History of tonsillectomy H/O section Social History household members: children and other details: parents housing: house Smoking Status: Never smoker alcohol intake: never diet: other what type of physical activity do you participate in: walking do you feel safe at home: Yes Review of Systems (Anesthesia) ROS Narrative System reviewed and no additional complaints, except as documented.
--- NOTE | 2024-03-27 12:29 | RAD_ITS ---
PROCEDURE: Left hip injection. DATE OF EXAMINATION: March 27, 2024. INDICATION: Female, 48 years old. Left hip pain. FLUOROSCOPY TIME (if supplied): (12 seconds) minutes/seconds. 10.79 mGy. RAD/Fluoro Guided Needle Placement IMPRESSION: Intraoperative imaging provided for left hip injection. Electronically Signed: Oliver Kuo MD at 15:32 EST ,
[2024-03-27] MEDS: Lidocaine 1% (20 ml mdv) 20 ML Vial (12:36)
[2024-03-27] MEDS: MethylPREDNISolone Acetate 80 MG/ML Vial (12:36)
[2024-03-27] MEDS: Bupivacaine 0.25% 30 ML Vial (12:36)
--- NOTE | 2024-03-27 12:45 | OP.PCM_ITS ---
Operative Report (Standard) Operative Information Date of Procedure: 03/27/24 Pre-Operative Diagnosis: 0 Post-Operative Diagnosis: 0 Surgery/Procedure Performed: 0 estimator and drafter: No Type of Anesthesia: MAC and Topical Anesth RN Documented Start/Stop Times: Operation Date: 03/27/24 10:40 Case Time Into Pre-Op 03/27/24 10:04 Anesthesia Start 03/27/24 12:28 Into Room 03/27/24 12:28 Procedure Start 03/27/24 12:36 Procedure End 03/27/24 12:44 Procedure Start Time: 12:45 Procedure Stop Time: 12:45 Select all DRAINS/GRAFTS/IMPLANTS that apply: None Special Medications: 0 Estimated Blood Loss: 0 Fluids Replaced: 0 Specimen collected: No Description of surgery: PREOPERATIVE DIAGNOSIS: Osteoarthritis of the left hip POSTOPERATIVE DIAGNOSIS: Osteoarthritis of the left hip PROCEDURE PERFORMED: Left hip intraarticular steroid injection under fluoroscopy guidance. ANESTHESIA: MAC. BLOOD LOSS: Minimal. COMPLICATIONS: None. DESCRIPTION OF PROCEDURE: History and physical of today was reviewed. Risks and benefits of the procedure were explained. The patient understood and agreed to proceed. Informed consent was obtained. IV inserted per routine protocol. The patient was taken to the operating room and placed in the supine position. The left hip area was prepped and draped in a sterile fashion using iodine x3. Under fluoroscopy guidance on AP view, the left hip joint was visualized. The skin and subcutaneous tissue was anesthetized with approximately 3 mL of 1% lid ocaine using a 25-gauge regular needle approximately 3 cm cephalad to the left greater trochanter. Under direct visualization with fluoroscopy on an AP view, using a 22-gauge 8-inch spinal needle, the needle was advanced via the skin using the lateral approach. The tip of the needle was maneuvered and directed towards the superiormost aspect of the hip joint. Once the tip of the needle was at the vicinity of the joint, after negative aspiration for blood and positive aspiration of synovial fluid, a total of 1 mL of contrast was injected to confirm correct placement of the needle as well as halo spread around the hip joint. After repeated negative aspiration for blood and confirmation on AP as well as oblique view, a total of 10 mL of preservative-free 0.25% Marcaine with 80 mg of Depo-Medrol was injected easily. The needle was then removed intact. The patient experienced no sign or symptoms of intrathecal or intravascular injection. The patient experienced no paresthesia. The procedure was completed without any apparent difficulty or any complications. The patient appeared to tolerate it well. ASSESSMENT AND PLAN: This is a 48-year-old female with osteoarthritis of the left hip status post left hip intra-articular steroid injection under fluoroscopic guidance, patient will continue her current medications, patient will follow up in approximately 2 weeks for reevaluation. Surgical Findings: 0 Complications Complications: No Admit VTE Documentation VTE Present on Admission: No
--- NOTE | 2024-03-27 12:53 | PCM.POST.ANE ---
Anesthesia: Postop Eval I Current Vital Signs Temperature: 97.4 F Pulse Rate: 67 Blood Pressure: 158/81 Respiratory Rate: 16 Pulse Ox: 96 Oxygen Delivery Method: Room Air Assessment Airway patent: Yes Spontaneous unlabored respirations: Yes Mental status: Awake and Calm nausea: No Vomiting: No Anesthesia Complication: No Fluid Hydration Crystalloid volume administer (ml): 6 Total IV fluid infused: 6 Progress Note Anesthesia document: Postop Eval 1 completed: Yes
--- NOTE | 2024-03-27 13:28 | PCM.POSTANE2 ---
Anesthesia Postop Eval I Sum Postop Eval Completion status Anesthesia document: Postop Eval 1 completed: Yes Anesthesia Postop Eval I Summary Anesthesia Postop Eval I Summary: Anesthesia Postop Eval I: Assessment Summary Airway patent Yes 03/27/24 13:01 Spontaneous unlabored Yes 03/27/24 13:01 respirations Mental status Awake,Calm 03/27/24 13:01 nausea No 03/27/24 13:01 Vomiting No 03/27/24 13:01 Anesthesia Postop Eval I: Fluid Summary Crystalloid volume administer 6 03/27/24 13:01 (ml) Colloids volume administered ( ml) Blood Product volume administered (ml) Total IV fluid infused 6 03/27/24 13:01 Anesthesia Postop Eval I: Summary Notes Anesthesia Complication No 03/27/24 13:01 Anesthesia Complication Comment: Post-operative progress note Anesthesia: Postop Eval II Evaluation Mental status: Awake Pain Level: 0 nausea: No Vomiting: No
== END 2024-03-27 13:27 | disposition home or self-care (01) ==
LOC: SDC 09:11 → AC 10:13
PROVIDERS: Anesthesiology; PCP Family Medicine; Referring Provider Anesthesiology Pain Medicine; Visit Provider Anesthesiology Pain Medicine
PROC: 3E0U3GC Introduction of Other Therapeutic Substance into Joints, Percutaneous Approach (ICD-10-PCS; CPT 20610; principal; 2024-03-27 10:35)
DX: M16.12 Unilateral primary osteoarthritis, left hip (principal); I10 Essential (primary) hypertension; Z79.899 Other long term (current) drug therapy
CPT/HCPCS: 20610; 01991; 76000; 77002; 81025; J2405

== ENCOUNTER 2024-05-01 08:08 | Day surgery (SDC) | payer MEDICAID, SELFPAY ==
[2024-05-01] VITALS (9 sets, daily range): BP systolic 136–199; BP diastolic 72–114; PULSE 66–80; RESP 12–16; TEMP 36.9–37; O2SAT 94–100; BMI 61.4
--- NOTE | 2024-05-01 08:40 | RAD_ITS ---
STUDY: HIP INJECTION LEFT REASON FOR EXAM: Female, 48 years old. LT HIP INJECTION FLUOROSCOPY TIME (if supplied): ( 17 seconds ) minutes/seconds. 18.33 mGy. 2 images were submitted. FINDINGS: Intraoperative imaging provided for left hip injection RAD/Fluoro Guided Needle Placement IMPRESSION: Intraoperative images provided for left hip injection. Electronically Signed: Oliver Kuo MD at 10:37 EST ,
[2024-05-01 08:57] LABS: Internal QC Validated? YES +Cl - CLEAR BKGD; Pregnancy, Urine Negative Negative
[2024-05-01] MEDS: MethylPREDNISolone Acetate 80 MG/ML Vial (09:44)
[2024-05-01] MEDS: Bupivacaine 0.25% 30 ML Vial (09:44)
[2024-05-01] MEDS: Midazolam 2 MG/2 ML Syringe (09:44)
[2024-05-01] MEDS: Lidocaine 1% (5 ml sdv) 5 ML Vial (09:44)
[2024-05-01] MEDS: fentaNYL 100 MCG/2 ML Ampul (09:44)
--- NOTE | 2024-05-01 09:51 | OP.PCM_ITS ---
Operative Report (Standard) Operative Information Date of Procedure: 05/01/24 Pre-Operative Diagnosis: 1 Post-Operative Diagnosis: 1 Surgery/Procedure Performed: 1 acute care occupational therapist: No Type of Anesthesia: IV Sedation and Local RN Documented Start/Stop Times: Operation Date: 05/01/24 09:40 Case Time Into Pre-Op 05/01/24 08:27 Anesthesia Start 05/01/24 09:36 Into Room 05/01/24 09:36 Procedure Start 05/01/24 09:42 Procedure End 05/01/24 09:50 Procedure Start Time: 09:51 Procedure Stop Time: 09:51 Select all DRAINS/GRAFTS/IMPLANTS that apply: None Estimated Blood Loss: 0 Specimen collected: No Description of surgery: PREOPERATIVE DIAGNOSIS: Osteoarthritis of the left hip POSTOPERATIVE DIAGNOSIS: Osteoarthritis of the left hip PROCEDURE PERFORMED: Left hip intraarticular steroid injection under fluoroscopy guidance. ANESTHESIA: Local BLOOD LOSS: Minimal. COMPLICATIONS: None. DESCRIPTION OF PROCEDURE: History and physical of today was reviewed. Risks and benefits of the procedure were explained. The patient understood and agreed to proceed. Informed consent was obtained. IV inserted per routine protocol. The patient was taken to the operating room and placed in the supine position. The left hip area was prepped and draped in a sterile fashion using iodine x3. Under fluoroscopy guidance on AP view, the left hip joint was visualized. The skin and subcutaneous tissue was anesthetized with approximately 3 mL of 1% lidocaine using a 25-gauge regular needle approximately 3 cm cephalad to the left greater trochanter. Under direct visualization with fluoroscopy on an AP view, using a 22-gauge 8-inch spinal needle, the needle was advanced via the skin using the lateral approach. The tip of the needle was maneuvered and directed towards the superiormost aspect of the hip joint. Once the tip of the needle was at the vicinity of the joint, after negative aspiration for blood and positive aspiration of synovial fluid, a total of 1 mL of contrast was injected to confirm correct placement of the needle as well as halo spread around the hip joint. After repeated negative aspiration for blood and confirmation on AP as well as oblique view, a total of 10 mL of preservative-free 0.25% Marcaine with 80 mg of Depo-Medrol was injected easily. The needle was then removed intact. The patient experienced no sign or symptoms of intrathecal or intravascular injection. The patient experienced no paresthesia. The procedure was completed without any apparent difficulty or any complications. The patient appeared to tolerate it well. ASSESSMENT AND PLAN: This is a 48-year-old female with osteoarthritis of the left hip status post left hip intra-articular steroid injection under fluoroscopic guidance, patient will continue her current medications, patient will follow up in approximately 2 weeks for reevaluation. Surgical Findings: 0 Complications Complications: No Admit VTE Documentation VTE Present on Admission: No VTE Mechan Device Prophylaxis: None VTE Pharm Prophylaxis ordered?: No
== END 2024-05-01 10:43 | disposition home or self-care (01) ==
LOC: SDC 08:09 → AC 08:10
PROVIDERS: PCP Family Medicine; Referring Provider Anesthesiology Pain Medicine; Visit Provider Anesthesiology Pain Medicine
PROC: 3E0U3GC Introduction of Other Therapeutic Substance into Joints, Percutaneous Approach (ICD-10-PCS; CPT 20610; principal; 2024-05-01 09:35)
DX: M16.12 Unilateral primary osteoarthritis, left hip (principal)
CPT/HCPCS: 20610; 76000; 77002; 81025; 99152; 99153; A4216

== ENCOUNTER 2024-09-08 15:30 | Outpatient (RCR) | payer MEDICAID, SELFPAY ==
--- NOTE | 2024-08-09 10:12 | HP.PTEVAL ---
Patient's Visit Information Visit Information Visit Information: CÉSAR HENDERSON is a 48 year old F referred to Physical Therapy by Dr. Rancho Shultz DO with a diagnosis of L hip OA. Date of Evaluation: 08/09/24 Physical Therapist: Shan Paz, DPT, OCS, CSCS Visit Plan Frequency: 2-3x /Week Duration: 4-6 Weeks Plan: 2-3x/week for 4 weeks for Pool based... 1. LB ROM 2. L hip strngth and ROM and general core strength 3. calorie burning work all to I at [facility] friends pool Subjective Subjective: Dr. Sofia seent over for longstanding hip pain. Also has h/o sciatica and gets treated with injections. L hip has no cushion L. So she has L hip pain every step since last summer. Uses cane all the time due to pain every step. No falls. has numbness from LB and wants to do shot in tailbone if approved. LBP also. 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 Worse after work. Basic ADLs, all I, painful, has walk in shower. Everything is slow. Hobbies: not for the last 9 months due to hip pain, has 11 yo that she would like to walk with. Stays in bed often. Has two steps into house and down to basement to showers. And using R leg only. No regular exercises. Lost 17# with intermittent fasting and portion control. 3 weeks Pain L hip: Pain Intensity (Out of 10): 7 Pain Intensity Range: 0 and 8 Comment: with ambulation Objective Objective: Walks with cane in R UE with large L treendelenberg adn antalgia today, more noticeable without cane, safe eithr way. Trasnfers chair and table slowly and painful to lie flat. Tender laterally at L hip. Hurts to lie flat on back. Steps using R only and needing railing up and down. lumbar AROM max loss extension with anterior hip pain. mod loss flexion standing limited by L hip flexion limitations, SB are min loss. L hip ROM 85 flexion 0 ext, 60 ext rotation and 0 IR R hip ROM 100 flexion, 8 extension, 75 xt rotation and 15 IR, abduction is painful L but 15 degree and r is 20 degrees without pain. + FADDIR adn SHANTELL on L. knees and ankle ROM WFL sensation to gross light touch WNL B LE today. HS and quad and psoas max tight on L and mod on R. strngth L hip abd and ext 3-, flexion 3, r hip is 4-. Knee strength 4-B, ankls 4 B. Good balance today Balance/Special Test Scores Lower Extremity Functional Score: 15 Goals Goal 1:: I appropri pool HP for LB ROM, L hip ROM and strength, streetch of HS and quad and calorie burning Goal Time Frame: 4-6 Weeks Goal 2:: Pt fel 50% betteer with pain 3/10 at worst Goal Time Frame: 4-6 Weeks Goal 3:: work without increased pain Goal Time Frame: 4-6 Weeks Goal 4:: LEFS score 35 Goal Time Frame: 4-6 Weeks Rehabilitation Potential Physical Therapy Diagnosis: L hip pain and limited ROM and strength causing difficulty with activity Rehabilitation Potential: Fair Anticipated Interventions Patient/Client Instruction: Educate patient on: Condition and Plan of Care For the Purpose of:: To decrease pain, To increase ROM, To improve nutrient delivery to tissue, To improve muscle performance and motor function, To increase tolerance to activity/condition/position, To improve ability of physical actions for home/community/work/leisure and To improve gait and locomotor functions Therapeutic Exercise to Include: Strength training, Coordination, Postural training, Flexibilty training, In an aquatic setting, Passive ROM and Active ROM For the Purpose of:: To decrease pain, To increase ROM, To improve nutrient delivery to tissue, To improve muscle performance and motor function, To increase tolerance to activity/condition/position, To improve ability of physical actions for home/community/work/leisure, To improve gait and locomotor functions and To increase flexibility/ROM Text: Thank you for the opportunity to evaluate your patient. For Medicare and Medicare HMO plans, please review the plan of care and approve it. It will need to be FAXED BACK to us at [phone] for Medicare purposes. For Medicare only, by signing this I certify the plan of care. Please let me know if there are questions or concerns regarding this plan of care. Physician Signature: Date:
--- NOTE | 2024-09-08 15:58 | HP.PTDCSUM ---
Discharge Summary D/C summary: It has been my pleasure to treat CÉSAR HENDERSON referred by Dr. Rancho Shultz DO, with the diagnosis of L hip OA for a total of 11 visit(s). Discharge Date: 09/08/24 Please see the following information for a summary of their discharge status. Subjective Subjective: Overall hip pain is no better. Moves better and lost 32# with increased movement. Still limping on L hip quite a bit and the weather real bad right now. Will get injection in tailbone on Wednesday from [facility]. Just saw doctor and will find out next step. Will continue with HEP and pool ex with friends pool at home this summer. Ready for hip replacement or next step. Pain L hip: Pain Intensity (Out of 10): 7 Overall Improvement % Improvement: 0 Objective Objective/Function: 90 hip flexion with pain, 20 abd with pain , + FADDIR, SHANTELL not bad and 70degrees. Walks with cane and max L antalgia today. Goals Goal 1:: I appropri pool HP for LB ROM, L hip ROM and strength, streetch of HS and quad and calorie burning Goal Progress: Goal Met Goal 2:: Pt fel 50% betteer with pain 3/10 at worst Goal Progress: Not Progressing Goal 3:: work without increased pain Goal Progress: Not Progressing Goal 4:: LEFS score 35 Goal Progress: Not Progressing Plan Plan: d/c , pt to continue in the pool and f/u with doctor for next step D/C Information d/c sentence: If there are questions or concerns regarding this patient's physical therapy, please feel free to call me at [phone]. Thank you for the referral of this patient. Sincerely, Shan Paz, DPT, OCS, CSCS Balance/Gait/Functional tests Balance/Special Test Scores Lower Extremity Functional Score: 15 Improvement % Improvement: 0
== END 2024-09-08 19:00 | disposition home or self-care (01) ==
LOC: PT 15:30
PROVIDERS: PCP Family Medicine; Referring Provider Orthopaedic Surgery; Visit Provider Orthopaedic Surgery
DX: M16.12 Unilateral primary osteoarthritis, left hip (principal)
CPT/HCPCS: 97113; 97161; 97164

== ENCOUNTER 2024-09-11 08:17 | Day surgery (SDC) | payer MEDICAID, SELFPAY ==
[2024-09-11] VITALS (9 sets, daily range): BP systolic 122–159; BP diastolic 73–87; PULSE 74–82; RESP 16–18; TEMP 36.2–36.7; O2SAT 95–100; BMI 57.9
[2024-09-11] MEDS: MethylPREDNISolone Acetate 80 MG/ML Vial (07:05)
[2024-09-11] MEDS: Lactated Ringers 1,000 ML 15 ML IV (09:10)
--- NOTE | 2024-09-11 09:24 | PCM.PRE.AN2 ---
ASA Classification* ASA Classification ASA Classification: 4 (BMI > 50, please give only versed and fentanyl. Asthma, HTN, ) Assessment & Plan Anesthesia* Anesthesia Assessment Anesthesia Assessment: Discussed sedation and/or anesthesia options, risks, benefits, and alternatives with patient/parents/legal guardian/POA. Questions invited. The patient/parents/legal guardian/POA seems to understand and agrees to proceed with anesthesia plan. Reviewed the physical assessment, medical history, allergy history and patient home medications list prior to surgery/procedure/anesthetic and documented any changes. Performed airway and anesthesia risk assessments. Anesthesia Type Anesthesia Type: MAC History Source History Obtained from:: Patient Anesthesia Focused Assessment* Temperature: 97.8 F Pulse Rate: 82 Blood Pressure: 159/87 Respiratory Rate: 18 Pulse Ox: 100 Oxygen Delivery Method: Room Air Airway Assessment Mouth opens: 2 cm Mallampati Score: IV Teeth Condition: Intact Neck Range of motion (ROM): Full ROM Focused Labs Anesthesia Preop lab: CBC WBC 10.6 K/mm3 (4.4-11.0) 06/15/23 06:14 06/15/23 RBC 3.53 M/mm3 (4.2-5.4) L 06/15/23 06:14 06/15/23 Hgb 10.3 g/dL (12.0-15.0) L 06/15/23 06:14 06/15/23 Hct 32.1 % (37-47) L 06/15/23 06:14 06/15/23 Plt Count 199 K/mm3 (150-450) 06/15/23 06:14 06/15/23 CHEMISTRY Potassium 3.3 mmol/L (3.5-5.1) L 06/16/23 06:23 06/16/23 Sodium 137 mmol/L (136-145) 06/16/23 06:23 06/16/23 BUN 12 mg/dL (7-18) 06/16/23 06:23 06/16/23 Creatinine 1.02 mg/dL (0.55-1.02) 06/16/23 06:23 06/16/23 Glucose 112 mg/dL (74-106) H 06/16/23 06:23 06/16/23 TSH 2.14 uIU/mL (0.358-3.74) 01/30/22 10:11 01/30/22 COAG PT 12.3 SECONDS (11.9-14.4) 01/25/13 08:35 01/25/13 Urine Test Negative Negative 05/01/24 08:37 05/01/24 Pre-Assessment Diagnosis/Proposed Procedure Planned Operative Procedure(s): Block, Caudal Anesthesia History Anesthesia History - online advertising manager: Anesthesia History - online advertising manager Hx Hospitalization No 09/07/24 12:36 Any Problems With Anesthesia No 09/07/24 12:36 Cholinesterase deficiency No 09/07/24 12:36 You/Your Family Experience No 09/07/24 12:36 fever (hyperthermia) with Relationship Recent Exposure to Contagious No 09/11/24 09:06 Disease Does patient have nerve No 09/07/24 12:36 stimulator Patient instructed to have device shut off --Does patient have Pacemaker No 09/11/24 09:06 or ICD? When Was Last Pacemaker Check QUESTION #4 FULL TEXT: You/Your Family Experience fever (hyperthermia) with Anesthesia Last Oral Intake Last Oral intake: Last Oral Intake NPO since 07:00 09/11/24 09:06 Meds taken in AM with sips of Yes 09/11/24 09:06 water? Meds patient instructed to take am of surgery PONV PONV - online advertising manager: PONV - online advertising manager Female Yes 09/07/24 12:36 HX of Motion Sickness No 09/07/24 12:36 HX of N/V After Surgery No 09/07/24 12:36 Non-Smoker Yes 09/07/24 12:36 Duration of Surgery greater No 09/07/24 12:36 than 60 minutes Number of Risk Factors 2 09/07/24 12:36 PONV Score Moderate Risk 09/07/24 12:36 Height & Weight Height & Weight: Anesthesia: Height & Weight Height 5 ft 5 in 09/11/24 09:06 Weight: 158 kg 09/11/24 09:06 Body Mass Index (BMI) 57.9 09/11/24 09:06 Respiratory Assessment Respiratory Assessment - online advertising manager: Respiratory Tract Infection Hx - online advertising manager Hx Respiratory Tract Infection No 09/07/24 12:36 STOP Sleep Apnea STOP Sleep Apnea - online advertising manager: STOP Sleep Apnea - online advertising manager Hx Hypertension Yes: on meds 09/07/24 12:36 Hx Sleep Apnea Yes 09/07/24 12:36 CPAP Yes 09/07/24 12:36 BIPAP No 09/07/24 12:36 Do you snore loudly (louder than talking or can be heard Do you often feel tired/ fatigued/ sleepy during daytime? Has anyone observed you stop breathing during sleep? STOP Results Positive 09/07/24 12:36 QUESTION #5 FULL TEXT : Do you snore loudly (louder than talking or can be heard through closed doors)? 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 Specify any problems Hx of Preganancy in last 3 No 09/07/24 12:36 Months Nurse Filling Out Transfusion JZODYLAN 09/07/24 12:36 & Questions: Date: 09/07/24 09/07/24 12:36 Time: 12:38 09/07/24 12:36 Patient unable to answer at this time (ie. confused, unrespo /Reproduction History /Reproductive History - online advertising manager: /Reproductive Hx- online advertising manager Hx Now No 09/07/24 12:36 Gestational Age (in weeks): EDC: Hx Hx Para Hx Section SAB No 09/07/24 12:36 Active Medications Active Medications: Current Medications Generic Name Dose Route Start Last Admin Trade Name Freq PRN Reason Stop Dose Admin Lactated Ringer's 1,000 mls @ 15 mls/hr 09/11/24 08:30 09/11/24 09:10 IV 15 mls/hr .Q48H RYDER Administration PFSH Medical History (Updated 09/07/24 @ 12:36 by Michaela Alexa) Wears glasses History of kidney stones Heartburn Non-smoker Back pain due to injury Restless legs Depression Kidney stones GERD (gastroesophageal reflux disease) CPAP (continuous positive airway pressure) dependence Asthma Sleep apnea HTN (hypertension) PCOS (polycystic ovarian syndrome) H/O methicillin resistant Staphylococcus aureus infection Home Medications ?Medication ?Instructions ?Recorded ?Last Taken ?Type fluoxetine 20 mg capsule 20 mg PO DAILY 07/24/20 Unknown History glucosamine sulfate 500 mg tablet 1,000 mg PO DAILY 07/24/20 Unknown History (Glucosamine) hydrochlorothiazide 25 mg tablet 25 mg PO DAILY 07/24/20 Unknown History magnesium 250 mg tablet 250 mg PO DAILY 07/24/20 Unknown History metformin 500 mg tablet,extended 500 mg PO DAILY PCOS 07/24/20 Unknown History release 24 hr omega-3 fatty acids 1,000 mg 1,000 mg PO DAILY 07/24/20 Unknown History capsule (Fish Oil Concentrate) omeprazole 20 mg capsule,delayed 20 mg PO DAILY 07/24/20 09/11/24 07:00 History release cholecalciferol (vitamin D3) 125 250 mcg PO QHS 06/14/23 Unknown History mcg (5,000 unit) capsule (D3-5000) ibuprofen 600 mg tablet 600 mg PO Q6H PRN pain #20 tabs 06/14/23 Unknown Rx albuterol sulfate 90 mcg/actuation 2 puff inhalation Q6H PRN 03/22/24 Unknown History aerosol inhaler shortness of breath or wheezing losartan 50 mg tablet 50 mg PO DAILY 05/01/24 09/11/24 07:00 History phentermine 15 mg capsule 15 mg PO DAILY 09/07/24 Unknown History Allergy/AdvReac Type Severity Reaction Status Date / Time adhesive AdvReac Itching Verified 09/11/24 09:04 latex AdvReac Itching Verified 09/11/24 09:04 Family History Father Asthma CVA (cerebral vascular accident) Seizures Mother Hypertension Diabetes Asthma Skin cancer Surgical History History of cystoscopy History of cholecystectomy History of tonsillectomy H/O section Social History household members: children and other details: parents housing: house Smoking Status: Never smoker alcohol intake: never diet: other what type of physical activity do you participate in: walking do you feel safe at home: Yes Review of Systems (Anesthesia) ROS Narrative System reviewed and no additional complaints, except as documented. Physical Exam Const alert and oriented x3 Nutritional Appearance: morbidly obese Resp normal respiratory effort, normal air movement and clear to auscultation bilaterally Cardio regular rate, regular rhythm, no murmurs and diaphoretic
--- NOTE | 2024-09-11 09:26 | RAD_ITS ---
PROCEDURE: FLUOR GUIDANCE FOR SPINE INJ 09/11/2024 REASON FOR EXAM: CAUDAL BLOCK TECHNIQUE: Intraoperative fluoroscopy for spine injection. COMPARISON: None. RAD/Fluor Guidance for Spine Inj IMPRESSION: Intraoperative fluoroscopy was performed for spine injection. A solitary fluor oscopic image was also obtained Reading Location: [id number]
[2024-09-11] MEDS: Lidocaine 1% (5 ml sdv) 5 ML Vial (09:38)
[2024-09-11] MEDS: 0.9% Normal Saline (Pres. free 10 ML Vial (09:39)
[2024-09-11] MEDS: Bupivacaine 0.25% 30 ML Vial (09:39)
--- NOTE | 2024-09-11 09:51 | PCM.POST.ANE ---
Anesthesia: Postop Eval I Current Vital Signs Temperature: 97.1 F Pulse Rate: 74 Blood Pressure: 122/77 Respiratory Rate: 16 Pulse Ox: 97 Oxygen Delivery Method: Room Air Assessment Airway patent: Yes Spontaneous unlabored respirations: Yes Mental status: Awake and Calm nausea: No Vomiting: No Anesthesia Complication: No Fluid Hydration Crystalloid volume administer (ml): 200 Total IV fluid infused: 200 Progress Note Anesthesia document: Postop Eval 1 completed: Yes
--- NOTE | 2024-09-11 09:58 | OP.PCM_ITS ---
Operative Report (Standard) Operative Information Date of Procedure: 09/11/24 Pre-Operative Diagnosis: Lumbosacral radiculopathy, lumbosacral degenerative disc disease, lumbosacral spinal stenosis Post-Operative Diagnosis: Lumbosacral radiculopathy, lumbosacral degenerative disc disease, lumbosacral spinal stenosis Surgery/Procedure Performed: Diagnostic/therapeutic caudal epidural steroid injection under fluoroscopic guidance environmental science program director: No Type of Anesthesia: Local MAC RN Documented Start/Stop Times: Operation Date: 09/11/24 10:05 Case Time Into Pre-Op 09/11/24 08:25 Anesthesia Start 09/11/24 09:31 Into Room 09/11/24 09:31 Procedure Start 09/11/24 09:37 Procedure End 09/11/24 09:42 Anesthesia End 09/11/24 09:46 Out of Room 09/11/24 09:46 Into Recovery 09/11/24 09:50 Procedure Start Time: 09:58 Procedure Stop Time: 09:58 Select all DRAINS/GRAFTS/IMPLANTS that apply: None Estimated Blood Loss: 0 Specimen collected: No Description of surgery: ANESTHESIA: MAC. BLOOD LOSS: Minimal. COMPLICATIONS: None. DESCRIPTION OF PROCEDURE: History and physical of today was reviewed. Risks and benefits of the procedure were explained. The patient understood and agreed to proceed. Informed consent was obtained. IV inserted per routine protocol. The patient was taken to the operating room and placed in the prone position with a pillow positioned underneath the abdomen. The lower back and tailbone area was prepped and draped in a sterile fashion using iodine x3. Under fluoroscopy guidance on a lateral view, the caudal space was identified. The skin and subcutaneous tissue was anesthetized with approximately 3 mL of 1% lidocaine using a 25-gauge regular needle. Under direct visualization with fluoroscopy, using a 22-gauge 3-1/2-inch spinal needle, the needle was advanced via the skin through the sacral hiatus. The tip of the needle was passed through the sacrococcygeal ligament and advanced to approximately S4 area. After negative aspiration of blood or CSF, a total of 3 mL of contrast was injected to confirm correct placement of the needle as well as cephalad spread. The spread was followed to approximately L5 area. After confirmation on AP as well as lateral view and repeated negative aspiration, a total of 15 mL of preservative-free 0.125% Marcaine with 80 mg of Depo-Medrol was injected easily. The needle was then removed intact. The patient experienced no sign or symptoms of intrathecal or intravascular injection. The patient experienced no paresthesia. The procedure was completed without any apparent difficulty or any complications. The patient appeared to tolerate it well. ASSESSMENT AND PLAN: This is a 48-year-old female with Lumbosacral radiculopathy, lumbosacral d egenerative disc disease, lumbosacral spinal stenosis, status post diagnostic/therapeutic caudal epidural steroid injection, patient will continue her current medications, patient will follow-up in approximately 2 weeks for reevaluation. Surgical Findings: 0 Complications Complications: No Admit VTE Documentation VTE Present on Admission: No VTE Mechan Device Prophylaxis: None VTE Pharm Prophylaxis ordered?: No
--- NOTE | 2024-09-11 10:38 | PCM.POSTANE2 ---
Anesthesia Postop Eval I Sum Postop Eval Completion status Anesthesia document: Postop Eval 1 completed: Yes Anesthesia Postop Eval I Summary Anesthesia Postop Eval I Summary: Anesthesia Postop Eval I: Assessment Summary Airway patent Yes 09/11/24 09:52 [email or web address] Spontaneous unlabored Yes 09/11/24 09:52 [email or web address] respirations Mental status Awake,Calm 09/11/24 09:52 [email or web address] nausea No 09/11/24 09:52 [email or web address] Vomiting No 09/11/24 09:52 [email or web address] Anesthesia Postop Eval I: Fluid Summary Crystalloid volume administer 200 09/11/24 09:52 [email or web address] (ml) Colloids volume administered ( ml) Blood Product volume administered (ml) Total IV fluid infused 200 09/11/24 09:52 [email or web address] Anesthesia Postop Eval I: Summary Notes Anesthesia Complication No 09/11/24 09:52 [email or web address] Anesthesia Complication Comment: Post-operative progress note Anesthesia: Postop Eval II Evaluation Mental status: Awake Pain Level: 0 nausea: No Vomiting: No Complications Anesthesia Complication: No
== END 2024-09-11 10:33 | disposition home or self-care (01) ==
LOC: SDC 08:18 → AC 08:19
PROVIDERS: PCP Family Medicine; Referring Provider Anesthesiology Pain Medicine; Visit Provider Anesthesiology Pain Medicine
PROC: 3E0S3BZ Introduction of Anesthetic Agent into Epidural Space, Percutaneous Approach (ICD-10-PCS; CPT 62282; principal; 2024-09-11 10:00)
DX: M51.17 Intervertebral disc disorders with radiculopathy, lumbosacral region (principal); M48.07 Spinal stenosis, lumbosacral region; I10 Essential (primary) hypertension; J45.909 Unspecified asthma, uncomplicated; K21.9 Gastro-esophageal reflux disease without esophagitis; F32.A Depression, unspecified; Z79.84 Long term (current) use of oral hypoglycemic drugs; Z79.899 Other long term (current) drug therapy
CPT/HCPCS: 62323; 64483; 77003